=== PATIENT | female | born 1980 | race Caucasian/White ===

== ENCOUNTER 2017-02-06 09:07 | Emergency (ER) | payer OTHER ==
[~2017-02-06] VITALS: Ht 167.6 cm; Wt 95.2 kg
--- NOTE | ~2017-02-06 | CR20 ---
[facility] A Service of [facility] RADIOLOGY TEXT RESULTS PATIENT: CAMMIE FAITH LOCATION: SED : 78 UNIT #: [id number] AGE: [address]: Enoc Wilkins MD SEX: F ORDER DR: [id number] [place] [id number] E MR#: [id number] Acc #: [id number] NAME: CAMMIE FAITH. : 1980 SEX: F STUDY DATE/TIME: 02/06/2017 09:19 UNIT: SED ROOM: STUDY DESCRIPTION: CR Ankle Min 3 Views Lt Attending Physician: Enoc Wilkins M.D. Ordering Physician: Enoc Wilkins M.D. Primary Care Physician: No Primary Care Physician MEDICAL IMAGING REPORT This report is preliminary unless electronic signature is present. EXAM Left ankle 3 views 02/06/2017 0919 hours HISTORY Patient slipped on a dog ball and fell with pain and swelling of the foot and ankle. Accident occurred last night between 11 and 12 COMPARISON None. FINDINGS AP, lateral and oblique views demonstrate mild lateral soft tissue swelling over the distal fibula. There is no fracture or dislocation. IMPRESSION There is mild lateral soft tissue swelling over the distal fibula. There is no fracture or dislocation. Dictated by... Belkis Marinelli M.D. THIS IS AN ELECTRONICALLY VERIFIED REPORT Belkis Marinelli M.D. at 02/06/2017 1:54 PM HEMAL/valarie TD: 02/06/2017 13:21 JOB #: [id number] MEDICAL IMAGING REPORT Page 1 of 1
--- NOTE | ~2017-02-06 | CR126 ---
[facility] A Service of [facility] RADIOLOGY TEXT RESULTS PATIENT: CAMMIE FAITH LOCATION: SED : 78 UNIT #: [id number] AGE: [address]: Enoc Wilkins MD SEX: F ORDER DR: [id number] [place] [id number] E MR#: [id number] Acc #: [id number] NAME: CAMMIE FAITH. : 1980 SEX: F STUDY DATE/TIME: 02/06/2017 UNIT: SED ROOM: STUDY DESCRIPTION: CR Foot Complete Min 3 View Lt Attending Physician: Enoc Wilkins M.D. Ordering Physician: Enoc Wilkins M.D. Primary Care Physician: Primary Care Physician No MEDICAL IMAGING REPORT This report is preliminary unless electronic signature is present. EXAM Left foot 3 views 02/06/2017 09:19 hours CLINICAL HISTORY Patient slipped and fell on dog ball last night between 11 and 12 midnight. Foot and ankle pain since fall. COMPARISON Left ankle 02/06/2017 FINDINGS AP, lateral and oblique views demonstrate normal bone density. There is no fracture or dislocation. IMPRESSION Negative left foot. Dictated by... Belkis Marinelli M.D. THIS IS AN ELECTRONICALLY VERIFIED REPORT Belkis Marinelli M.D. at 02/06/2017 1:54 PM SMM/toni TD: 02/06/2017 13:17 JOB #: [id number] MEDICAL IMAGING REPORT Page 1 of 1
[2017-02-06] MEDS ORDERED: KLONOPIN (09:11)
== END 2017-02-06 10:10 | disposition home or self-care (01) ==
LOC: SED 09:07
DX: S93.422A Sprain of deltoid ligament of left ankle, initial encounter (principal); S93.622A Sprain of tarsometatarsal ligament of left foot, initial encounter; X50.1XXA Overexertion from prolonged static or awkward postures, initial encounter; Y92.099 Unspecified place in other non-institutional residence as the place of occurrence of the external cause
CPT/HCPCS: 29540; 73610; 73630; 99283